=== PATIENT | male | born 1960 | race Caucasian/White ===

== ENCOUNTER 2024-05-26 13:43 | Outpatient (RCR) | payer OTHER, SELFPAY ==
--- NOTE | 2024-05-26 14:48 | OTOPEVDC ---
Assessment and note entered by MONET Villarreal/Eduardo, CHT Evaluation Information Subjective Information Patient referred to our clinic for a wheelchair evaluation. 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 Please refer to scanned 12 page seating/ mobility evaluation form for details. OT Clinical Summary Jasmina is unable to safely and independently ambulate due to being a bilateral amputee. Right below the knee and left above the knee amputee. He has been measured for bilateral prostheses, but he has not received them yet. Thus at this time he is completely dependent on the use of a manual wheelchair for his mobility. Without the use of a manual wheelchair the patient would be confined to a bed, dependent for his ADLs. Jasmina demonstrates significant mobility limitations that cannot be sufficiently resolved by the use of an appropriately fitted cane or walker due to the absence of bilateral lower extremities. This patient requires a K5 manual wheelchair due to being a full-time wheelchair user and needing individualized fitting not available on K1-K4 wheelchairs. He requires an adjustable axle for functional reach of the wheels. He also requires center of gravity adjustment for stability. The patient also requires the lightest frame available as he is dependent on his sister to lift the wheelchair into her car. She is older and reports having a very difficult time lifting heavier weight. A light weight wheel chair also provides improved independence with self-propelling as he has he becomes short of breath with self- propelling. A light-weight manual wheelchair is necessary because this patient is unable to safely participate in or complete household mobility tasks or ADLs with a cane or walker. With a light weight manual wheelchair the patient will be able to independently perform household mobility and ADL tasks. Patient is willing, able, and capable to use recommended equipment. Plan of Care OT Services Indicated No
== END 2024-05-29 10:30 | disposition home or self-care (01) ==
LOC: ANHOT 13:43
DX: Z89.511 Acquired absence of right leg below knee (principal)
CPT/HCPCS: 97167